=== PATIENT | male | born 1960 | race Caucasian/White ===

== ENCOUNTER 2019-08-22 13:35 | Outpatient (CLI) | payer BC, SELFPAY ==
--- NOTE | ~2019-08-22 | PE_ITS ---
EXAMINATION: PET skull to mid thigh DATE: 08/22/2019 15:34 INDICATION: Non-small cell lung cancer. TECHNIQUE: Blood glucose level was 220 mg/dL. 10.379 mCi of 18-fluorodeoxyglucose (18-FDG) was admini stered i.v. Low dose computed tomography (CT) images were acquired from the base of the brain to the proximal thighs for attenuation correction and anatomic localization. Automated exposure control was employed. Dose-length product (DLP) was 962 mGy-cm. Positron emission tomography (PET) images were ac quired in the same distribution. COMPARISON: None FINDINGS: Head/neck: There is increased activity in the oropharynx without CT correlate, likely physiologic. Th ere is an 11 mm nodule in right thyroid lobe without increased activity, likely not clinically signif icant. There are no pathologically enlarged lymph nodes. Chest: There is mild emphysema. There is a 2.2 cm nodule in left upper lobe with maximum SUV of 4.6. There is a 7 mm nodule in right upper lobe without increased activity. No pleural effusion. Cardiomeg shree is noted. There are coronary artery calcifications. No pericardial effusion. There is a left inte rnal jugular port with tip at superior cavoatrial junction. There are no pathologically enlarged lymp h nodes. There are a few scattered benign bone islands in the spine. Abdomen/pelvis/proximal thighs: The liver and spleen are normal. There are changes of cholecystectomy . The pancreas, adrenal glands, and kidneys are normal. There are no dilated loops of bowel. There is a ventral hernia containing a wall of nonobstructed small bowel. There is a left inguinal hernia con taining fat. There are no pathologically enlarged lymph nodes. There is no free intraperitoneal fluid . There is a left-sided spigelian hernia containing fat. There is a lytic lesion in posterior left ac etabulum with increased activity. There is a lytic lesion in L4 vertebral body with increased activit y. IMPRESSION: 1. 2.2 cm nodule in left lung upper lobe with increased activity, consistent with primary bronchogeni c carcinoma. 2. Lytic lesions in the left posterior acetabulum and L4 vertebral body with increased activity, cons istent with metastatic disease. 3. 7 mm right upper lobe pulmonary nodule without increased activity, which is indeterminate for meta static disease. 4. Ventral hernia containing a wall of nonobstructed small bowel. Reviewed, dictated and finalized at location A. M SASH MAKER IMPRESSION: 1. 2.2 cm nodule in left lung upper lobe with increased activity, consistent wi th primary bronchogenic carcinoma. 2. Lytic lesions in the left posterior acetabulum and L4 vertebral body with in creased activity, consistent with metastatic disease. 3. 7 mm right upper lobe pulmonary nodule without increased activity, which is indeterminate for metastatic disease. 4. Ventral hernia containing a wall of nonobstructed small bowel.
[2019-08-22 14:03] LABS: Glucose Point of Care 220 (65-105)
== END 2019-08-22 13:36 | disposition home or self-care (01) ==
PROVIDERS: Visit Provider Internal Medicine Hematology & Oncology
DX: C34.90 Malignant neoplasm of unspecified part of unspecified bronchus or lung (principal); M89.9 Disorder of bone, unspecified; R91.1 Solitary pulmonary nodule; K43.9 Ventral hernia without obstruction or gangrene
CPT/HCPCS: 78815; A9552

== ENCOUNTER 2019-09-06 09:22 | Outpatient (CLI) | payer BC, SELFPAY ==
[2019-08-25 11:45] VITALS: BMI 26.9
[2019-09-06] VITALS (10 sets, daily range): BP systolic 112–147; BP diastolic 58–85; PULSE 85–103; RESP 13–18; TEMP 36.6; O2SAT 91–99
--- NOTE | ~2019-09-06 | XR_ITS ---
EXAMINATION: XR chest 1V portable DATE: 09/06/2019 13:53 INDICATION: Left lung upper lobe nodule status post percutaneous biopsy. TECHNIQUE: A single frontal view of the chest was obtained. COMPARISON: Chest radiograph at 12:52 PM FINDINGS: There are airspace opacities in left lung upper lobe. There is a small left pneumothorax. N o pleural effusion. The heart size is normal. There is a left internal jugular port with tip at super ior cavoatrial junction. IMPRESSION: 1. Improved airspace opacities in left lung upper lobe, consistent with hemorrhage. 2. Stable small left pneumothorax. Reviewed, dictated and finalized at location A. IMPRESSION: 1. Improved airspace opacities in left lung upper lobe, consistent with hemorrh age. 2. Stable small left pneumothorax.
--- NOTE | ~2019-09-06 | XR_ITS ---
XR chest 1V portable 09/06/2019 15:51 Indication: Post biopsy. Non-small cell lung cancer. Procedure: AP portable chest Comparison: Comparison to multiple prior studies sequentially, with oldest reviewed study dated 08/26. Findings: Enlarging left apical pneumothorax measuring 3 cm from the visceral to the parietal pleura at the left apex. There is patchy left sided airspace consolidation. Heart size normal. Right lung cl ear. No pleural effusion. No acute osseous abnormality. Impression: 1: Enlargement of left apical pneumothorax compared with prior studies. 2: Persistent patchy left-sided airspace disease, consistent with postbiopsy hemorrhage. Reviewed, dictated and finalized at location A. Impression: 1: Enlargement of left apical pneumothorax compared with prior studies. 2: Persistent patchy left-sided airspace disease, consistent with postbiopsy he morrhage.
--- NOTE | ~2019-09-06 | XR_ITS ---
EXAMINATION: XR chest 1V DATE: 09/06/2019 12:58 INDICATION: Left upper lobe pulmonary nodule status post percutaneous biopsy. TECHNIQUE: A single frontal view of the chest was obtained. COMPARISON: PET/CT 08/22/2019, chest CT 09/06/2019 FINDINGS: There are airspace opacities in left upper lobe. No pleural effusion. There is a small left pneumothorax. Cardiomegaly is noted. There is a left internal jugular port with tip at superior cavo atrial junction. IMPRESSION: 1. Airspace opacities in left upper lobe, consistent with iatrogenic hemorrhage. The patient was plac ed in the supine oblique position with the right side elevated. 2. Small iatrogenic left pneumothorax. 3. Cardiomegaly. Reviewed, dictated and finalized at location A. IMPRESSION: 1. Airspace opacities in left upper lobe, consistent with iatrogenic hemorrhage . The patient was placed in the supine oblique position with the right side kostas vated. 2. Small iatrogenic left pneumothorax. 3. Cardiomegaly.
--- NOTE | ~2019-09-06 | CT_ITS ---
EXAMINATION: CT biopsy lung DATE: 09/06/2019 13:05 INDICATION: Left lung upper lobe nodule. TECHNIQUE: The procedure including the risks, benefits, and alternatives and possibility of chest tub e placement were discussed with the patient. Risks discussed included infection, approximately 1/20 r isk of symptomatic hemorrhage beyond mild hemoptysis, approximately 1/3 risk of pneumothorax, approxi mately 1/10 risk of pneumothorax severe enough to warrant chest tube placement, and rarely . The patient understood the risks and agreed to proceed. The patient was placed prone. The skin overlyin g the left chest was prepped and draped in sterile fashion. Anesthetic was administered with 1% lido keegan subcutaneously. A 19 gauge outer needle was advanced under CT guidance to the lesion of intere st. A 20 gauge core biopsy needle was then used to obtain 3 core biopsy specimens. The needle was rem zuly and the entry site was cleaned and dressed. The mA was adjusted according to patient size. Itera tive reconstruction technique was employed. The dose-length product was 433.26 mGy-cm. FINDINGS: CT images demonstrate the outer needle tip adjacent to a 2.1 cm nodule in left lung upper l obe. Subsequent images demonstrate a small left pneumothorax and a small volume of left upper lobe he morrhage. IMPRESSION: 1. CT-guided core needle biopsy of a 2.1 cm nodule in left lung upper lobe. 2. Small left pneumothorax. 3. Small volume of left upper lobe hemorrhage. The patient was placed in the supine oblique position with the right side up. Reviewed, dictated and finalized at location A. IMPRESSION: 1. CT-guided core needle biopsy of a 2.1 cm nodule in left lung upper lobe. 2. Small left pneumothorax. 3. Small volume of left upper lobe hemorrhage. The patient was placed in the [place] oblique position with the right side up.
[2019-09-06 10:39] LABS: Platelet Count Result 225 k/mm3 (150-375)
[2019-09-06 10:49] LABS: INR 0.8; Prothrombin Time 11.2 Seconds (11.1-14.7)
--- NOTE | 2019-09-06 13:49 | SUR.PHASEII ---
1347 PORTABLE CHEST XRAY TAKEN.
--- NOTE | 2019-09-06 15:46 | SUR.PHASEII ---
1545 PORTABLE CHEST XRAY TAKEN.
--- NOTE | 2019-09-06 16:43 | SUR.PHASEII ---
1600 DR ORTEZ SPEAKING WITH PT & SPOUSE. DR PICKENS TO DISCHARGE PT HOME. 1610 DISCHARGE INSTRUCTIONS GIVEN TO PT & SPOUSE- ALL QUESTIONS ANSWERED.
[2019-09-12 07:52] LABS: Glucose Point of Care 204 (65-105)
== END 2019-09-06 09:23 | disposition home or self-care (01) ==
PROVIDERS: Radiology Diagnostic Radiology; Visit Provider Internal Medicine Hematology & Oncology
DX: C34.90 Malignant neoplasm of unspecified part of unspecified bronchus or lung (principal); R91.8 Other nonspecific abnormal finding of lung field; J93.9 Pneumothorax, unspecified; I51.7 Cardiomegaly
CPT/HCPCS: 32405; 36415; 71045; 77012; 85049; 85610; 88305

== ENCOUNTER 2019-09-08 12:35 | Outpatient (CLI) | payer BC, SELFPAY ==
--- NOTE | ~2019-09-08 | MR_ITS ---
EXAMINATION: MR hip LT wo/w con DATE: 09/08/2019 14:26 INDICATION: Secondary malignant neoplasm of bone. TECHNIQUE: Magnetic resonance imaging (MRI) of the left hip was performed without and with 15 mL Mult iHance intravenous contrast. Sequences included coronal T1-weighted FSE and T2-weighted FS FSE, axial T2 1-weighted FSE and, T1-weighted FS FSE, and T2-weighted FS FSE, sagittal T1-weighted FSE and T2-w eighted FS FSE, and postcontrast coronal and axial T1-weighted FS FSE. COMPARISON: PET CT 08/22/2019 FINDINGS: Bone alignment is normal. No fracture. There are areas of bone marrow replacement involving L4 vertebral body and left ischium correlating with foci of increased activity on the prior PET/CT, consistent with metastatic disease. There are subcentimeter lesions of bone marrow replacement involv ing the right inferior pubic ramus, left ilium, and left parasymphyseal pubis suspicious for metastat ic disease. There is a left inguinal hernia containing fat. There are no pathologically enlarged lymp h nodes. There is no free intraperitoneal fluid. IMPRESSION: 1. Bone lesions, consistent with metastatic disease. Given the recent negative lung biopsy, consider CT-guided biopsy of the left ischium for diagnosis. Reviewed, dictated and finalized at location A.
[2019-09-08 13:16] LABS: Estimated Glomerular Filt Rate > 60
== END 2019-09-08 12:36 | disposition home or self-care (01) ==
PROVIDERS: Visit Provider Radiology Radiation Oncology
DX: C79.51 Secondary malignant neoplasm of bone (principal)
CPT/HCPCS: 36415; 73723; A9577

== ENCOUNTER 2020-01-30 13:38 | Outpatient (CLI) | payer BC, SELFPAY ==
[2020-01-30 14:05] LABS: Basophils Absolute Auto 0.1 K/mm3 (0.0-0.1); Basophils Percent Auto 1.9 % (0.2-1.2); Eosinophils Absolute Auto 0.6 K/mm3 (0-0.3); Eosinophils Percent Auto 11.3 % (0-4.4); Hematocrit 29.8 % (42.0-52.0); Hemoglobin 9.8 g/dL (14.0-18.0); Immature Granulocyte Absolute 0.05 K/mm3 (0.00-0.031); Immature Granulocyte Percent A 0.9 % (0-0.5); Lymphocytes Absolute Auto 1.02 K/mm3 (0.9-3.2); Lymphocytes Percent Auto 18.9 % (18.3-44.2); Mean Corpuscular HGB Conc 32.9 g/dl (32-36); Mean Corpuscular Hemoglobin 31.9 pg (26-34); Mean Corpuscular Volume 97.1 fl (80-100); Mean Platelet Volume 10.1 fl (7.4-10.4); Monocytes Absolute Auto 0.7 K/mm3 (0.1-0.6); Monocytes Percent Auto 12.2 % (2.6-8.5); Neutrophils Percent Auto 54.8 % (45.5-73.1); Platelet Count Result 224 k/mm3 (150-375); Red Blood Count 3.07 M/mm3 (4.6-6.20); Red Cell Distribution Width 15.5 % (11.5-14.5); White Blood Count 5.4 K/mm3 (4.5-10.0)
[2020-01-30 15:09] LABS: Alanine Aminotransferase 16 U/L (4-50); Albumin Level 4.3 g/dL (3.5-5.1); Alkaline Phosphatase 97 U/L (38-126); Aspartate Amino Transferase 25 U/L (17-59); Bilirubin,Total 0.4 mg/dL (0.2-1.3); Blood Urea Nitrogen 16 mg/dL (9-20); Calcium 8.5 mg/dL (8.4-10.2); Carbon Dioxide 24 mmol/L (22-30); Chloride 103 mmol/L (98-107); Estimated Glomerular Filt Rate > 60; Glucose 141 mg/dL (75-110); Sodium 138 mmol/L (137-145)
[2020-01-30 15:28] LABS: Microalbumin Urine Random 122.2 mg/L (0-16.7)
[2020-01-30 17:02] LABS: Creatinine Urine 362.7 mg/dL; MALB Creatinine Ratio 33.7 mg/g (0-30)
== END 2020-01-30 13:39 | disposition home or self-care (01) ==
PROVIDERS: Visit Provider Internal Medicine Hematology & Oncology
DX: Z00.01 Encounter for general adult medical examination with abnormal findings (principal); C34.91 Malignant neoplasm of unspecified part of right bronchus or lung; E11.9 Type 2 diabetes mellitus without complications; R03.0 Elevated blood-pressure reading, without diagnosis of hypertension
CPT/HCPCS: 36415; 80053; 82043; 83036; 85025

== ENCOUNTER 2020-02-02 10:28 | Outpatient (CLI) | payer BC, SELFPAY ==
--- NOTE | ~2020-02-02 | NM_ITS ---
EXAMINATION: NM bone scan whole body DATE: 02/02/2020 14:27 INDICATION: Non-small cell lung cancer. TECHNIQUE: 21 mCi Tc-99m HDP was administered intravenously. Delayed whole-body scintigrams were obt ained. COMPARISON: Head CT dated 08/22/2019 and left hip MRI dated 09/08/2019. No more recent study available for comparison. FINDINGS: There is mild increased uptake at the posterior left acetabulum and at the left side of the L4 verteb ral body which correspond to previously identified FDG avid likely metastatic lesions. Mild likely de generative joint centered uptake at several of the costovertebral articulations. Small focus of relat ively intense uptake in the left zygomatic region without evident correlate on the prior study. Addit ional small focus of moderately increased uptake at the right side of the mandible which could be rel ated to dental disease. Subtle focus of mild increased uptake at the superolateral left calvarium. No other suspicious bone lesions identified. IMPRESSION: 1. Mild increased uptake associated with known FDG avid likely metastatic lesions at the posterior le ft acetabulum and at the left side of the L4 vertebral body. 2. 3 foci of increased uptake in the head, the most suspicious is a small focus of relatively intense uptake projecting over the left zygomatic region potentially associated with the temporomandibular j oint although the temporomandibular joint appears normal on the prior PET/CT. If clinically indicated could consider further evaluation with either maxillofacial CT or pre and postcontrast MRI. Reviewed, dictated and finalized at location A. IMPRESSION: 1. Mild increased uptake associated with known FDG avid likely metastatic lesio ns at the posterior left acetabulum and at the left side of the L4 vertebral [place] dy. 2. 3 foci of increased uptake in the head, the most suspicious is a small focus of relatively intense uptake projecting over the left zygomatic region potenti ally associated with the temporomandibular joint although the temporomandibular joint appears normal on the prior PET/CT. If clinically indicated could consid er further evaluation with either maxillofacial CT or pre and postcontrast MRI.
== END 2020-02-02 10:29 | disposition home or self-care (01) ==
PROVIDERS: Visit Provider Internal Medicine Hematology & Oncology
DX: C34.91 Malignant neoplasm of unspecified part of right bronchus or lung (principal)
CPT/HCPCS: 78306; A9561

== ENCOUNTER 2020-03-08 13:51 | Outpatient (CLI) | payer BC, SELFPAY ==
--- NOTE | ~2020-03-08 | CT_ITS ---
EXAMINATION: CT facial bones w con DATE: 03/08/2020 14:30 INDICATION: Secondary malignant neoplasm of bone; increased uptake suggested at left temporomandibula r slice zygomatic area on 02/02/2020 radionuclide bone scan TECHNIQUE: Computed tomography (CT) of the facial bones and maxillofacial region was performed with 7 5 cc Omnipaque 350 intravenous contrast. Automated exposure control and iterative reconstruction tech nique were employed. Exam dose: 290.42 mGy-cm total exam DLP. COMPARISON: 08/22/2019 PET scan 02/02/2020 radionuclide bone scan FINDINGS: Probable old bilateral nasal plate fractures. No facial fracture is evident. The frontozygomatic sutures, zygomatic arches and temporomandibular bryant ints are intact. No facial bone destruction. No mandible bone destruction. The temporal mandibular bryant ints are unremarkable. There is no evidence of bone destruction at the left temporal mandibular or zy gomatic area. No overlying parotid mass lesion is detected. No cervical mass lesion or lymphadenopath y. The submandibular and parotid glands are unremarkable. IMPRESSION: No significant abnormality of the facial bones, temporomandibular joints and mandible Reviewed, dictated and finalized at Location A. Reviewed, dictated and finalized at location A.
== END 2020-03-08 13:52 | disposition home or self-care (01) ==
PROVIDERS: Visit Provider Radiology Radiation Oncology
DX: C79.51 Secondary malignant neoplasm of bone (principal)
CPT/HCPCS: 70487; Q9967

== ENCOUNTER 2020-04-29 11:45 | Emergency (ER) | payer BC, SELFPAY ==
[2020-04-29 11:49] VITALS: BP 142/98; PULSE 62; RESP 18; TEMP 36; O2SAT 100
--- NOTE | 2020-04-29 11:56 | ECG_ITS ---
Measurements Intervals [place] Rate: 116 P: 66 KS: 122 QRS: 65 QRSD: 98 T: 61 QT: 297 QTc: 414 Interpretive Statements SINUS TACHYCARDIA FREQUENT ATRIAL PREMATURE COMPLEXES INCOMPLETE RIGHT BUNDLE BRANCH BLOCK BASELINE ARTIFACT- I, III, AVR, AVL ABNORMAL ECG Electronically Signed On 04-29-2020 12:07:19 [employer] by Porfirio Sauer D.O.
[2020-04-29] MEDS: SODIUM CHLORIDE 0.9% IV 1,000 ML 999 ML IV CONT (12:52)
[2020-04-29] MEDS: ONDANSETRON INJ 4 MG/2 ML VIAL IV PUSH (12:52)
[2020-04-29] MEDS: DEXAMETHASONE SOD PHOS INJ 4 MG/ML VIAL IV PUSH (12:59)
--- NOTE | 2020-04-29 13:02 | ED.GENADULT ---
HPI - General Adult General Chief complaint: Arrhythmia/Palpitations Stated complaint: sent from infusion center, not feeling well Time Seen by Provider: 04/29/20 12:10 Source: patient History of Present Illness HPI narrative: Patient is 59 y/o male complaining of nausea and vomiting since last week. He vomited more than 10 time over last 24 hours. He vomits mostly food and liquid. There is no known alleviating or exacerbating factor. He states that he is on Keytruda for lung cancer and he received radiation treatment 2 weeks ago. He was at infusion center to get some IV fluid, steroids and antiemetics today. However, he was told that his heart rate fast and erratic and he was sent here. He does not feel any subjective palpitation. Related Data Home Medications Medication Instructions Recorded Confirmed azelaic acid 1 applic TOPICAL BID 08/25/19 04/22/20 gabapentin 300 mg PO TID 08/25/19 04/22/20 insulin glargine [Lantus U-100 60 unit SUBCUT DAILY 08/25/19 04/22/20 Insulin] lisinopril 5 mg PO DAILY 08/25/19 04/22/20 metformin 1,000 mg PO BID 08/25/19 04/22/20 multivitamin 1 tablet PO DAILY 08/25/19 04/22/20 omeprazole 40 mg PO DAILY 08/25/19 04/22/20 cholestyramine-aspartame 4 g PO DAILY 11/02/19 04/22/20 [Cholestyramine Light] diphenoxylate-atropine 1 tablet PO TID PRN 11/02/19 04/22/20 cyanocobalamin (vitamin B-12) 1,000 mcg PO DAILY 03/11/20 04/22/20 ferrous sulfate 325 mg PO DAILY 03/11/20 04/22/20 tramadol 50 mg PO Q6H PRN 03/11/20 04/22/20 magnesium [Mag-200] 200 mg PO DAILY 04/22/20 04/22/20 Allergies Allergy/AdvReac Type Severity Reaction Status Date / Time amoxicillin Allergy Hives Verified 04/29/20 11:57 hydromorphone AdvReac Itching Verified 04/29/20 11:57 Review of Systems Constitutional: Constitutional: Denies chills, Denies fever(s), Denies headache(s) and Denies weakness Eyes: Eyes: Denies blurry vision ENT: Denies headache(s) and Denies neck pain Cardiovascular: Cardiovascular: Denies chest pain and Denies dyspnea Respiratory: Respiratory: Denies cough and Denies dyspnea Gastrointestinal: Gastrointestinal: Reports abdominal pain, Denies diarrhea, Reports nausea and Reports vomiting Genitourinary: Genitourinary: Denies hematuria and Denies dysuria Musculoskeletal: Musculoskeletal: Reports back pain, Denies neck pain and Reports other (bilateral leg pain) Neurologic: Denies headache(s) and Denies weakness [facility] Past Medical History Medical History COPD (chronic obstructive pulmonary disease) Diabetes mellitus GERD (gastroesophageal reflux disease) Hyperlipidemia Neuropathy Family History Family History Mother Cancer Social History Social History Smoking packs per day: 2 Smoking cigarettes per day: 40.0 Years smoked: 40 Smoking pack-years: 80.00 Smoking status: Former smoker Tobacco type: cigarettes Smoking end date: 08/30/14 Gender identity (if verbalized by the patient): Male Spiritual care concerns: No Exam Const: General: no acute distress and well developed Orientation/consciousness: oriented to person, oriented to place, oriented to time and patient oriented x3 HENMT: Head: normocephalic Ears: external ears normal General nose exam: Normal external nose present Eyes: General: appearance normal, both eyes and all related structures Conjunctivae: conjunctivae normal Neck: Neck: normal visual inspection and full ROM Chest: Chest palpation & inspection: normal inspection of the chest and no tenderness Resp: Effort & Inspection: normal respiratory effort Auscultation: clear to auscultation bilaterally Cardio: Rate: tachycardic Rhythm: regular rhythm GI: GI Palp: No abdominal tenderness and Yes Soft to palpation Skin: General skin exam: normal color and turgor normal Neuro: General: orien
[2020-04-29 13:03] LABS: Basophils Percent Auto 0.7 % (0.2-1.2); Eosinophils Absolute Auto 0.1 K/mm3 (0-0.3); Eosinophils Percent Auto 1.4 % (0-4.4); Hematocrit 33.7 % (42.0-52.0); Hemoglobin 11.8 g/dL (14.0-18.0); Immature Granulocyte Absolute 0.02 K/mm3 (0.00-0.031); Immature Granulocyte Percent A 0.5 % (0-0.5); Lymphocytes Absolute Auto 0.59 K/mm3 (0.9-3.2); Lymphocytes Percent Auto 13.3 % (18.3-44.2); Mean Corpuscular Hemoglobin 29.6 pg (26-34); Mean Corpuscular Volume 84.7 fl (80-100); Mean Platelet Volume 9.3 fl (7.4-10.4); Monocytes Absolute Auto 0.5 K/mm3 (0.1-0.6); Monocytes Percent Auto 11.7 % (2.6-8.5); Neutrophils Absolute Auto 3.2 K/mm3 (1.3-6.7); Neutrophils Percent Auto 72.4 % (45.5-73.1); Platelet Count Result 242 k/mm3 (150-375); Red Blood Count 3.98 M/mm3 (4.6-6.20); Red Cell Distribution Width 13.2 % (11.5-14.5); White Blood Count 4.4 K/mm3 (4.5-10.0)
[2020-04-29 13:16] LABS: Alanine Aminotransferase 17 U/L (4-50); Albumin Level 4.4 g/dL (3.5-5.1); Alkaline Phosphatase 99 U/L (38-126); Anion Gap 11 mmol/L (8-16); Aspartate Amino Transferase 22 U/L (17-59); Bilirubin,Total 0.7 mg/dL (0.2-1.3); Blood Urea Nitrogen 21 mg/dL (9-20); Calcium 9.8 mg/dL (8.4-10.2); Carbon Dioxide 27 mmol/L (22-30); Chloride 98 mmol/L (98-107); Estimated CRCL calculation 71 ml/min; Estimated Glomerular Filt Rate > 60; Glucose 208 mg/dL (75-110); Potassium 4.2 mmol/L (3.4-5.0); Sodium 136 mmol/L (137-145)
[2020-04-29] MEDS: METOCLOPRAMIDE HCL INJ 10 MG/2 ML VIAL (14:14)
[2020-04-29 15:04] LABS: Add Urine Microscopic? YES; Appearance Urine Clear (Clear); Bilirubin Urine Negative (Negative); Blood Urine 1+ (Negative); Color Urine Yellow (Yellow); Glucose Urine UA 1+ mg/dL (Negative); Ketones Urine Trace mg/dL (Negative); Leukocyte Esterase Ur Negative LEU/UL (Negative); Mucus Urine Few /lpf; Nitrate Urine Negative (Negative); Protein Urine 3+ mg/dL (Negative); RBC Urine 0-2 /hpf (0-2); Specific Grav Ur 1.027 (1.001-1.035); Urobilinogen Urine Negative mg/dL (<2.0); WBC Urine 0-3 /hpf
[2020-04-29 15:26] VITALS: BP 147/73; PULSE 97; RESP 18; O2SAT 100
[2020-04-29 16:14] VITALS: BP 138/80; PULSE 74; RESP 18; TEMP 36.7; O2SAT 99
[2020-04-29] MEDS: HEPARIN SOD FLUSH 500 UNITS/5 ML SYRINGE (16:14)
== END 2020-04-29 16:20 | disposition home or self-care (01) ==
PROVIDERS: Internal Medicine Hematology & Oncology; Emergency Provider Emergency Medicine; PCP Internal Medicine Infectious Disease
DX: R11.2 Nausea with vomiting, unspecified (principal); R00.0 Tachycardia, unspecified; C34.90 Malignant neoplasm of unspecified part of unspecified bronchus or lung; J44.9 Chronic obstructive pulmonary disease, unspecified; K21.9 Gastro-esophageal reflux disease without esophagitis; E78.5 Hyperlipidemia, unspecified; E11.40 Type 2 diabetes mellitus with diabetic neuropathy, unspecified; Z79.4 Long term (current) use of insulin; Z87.891 Personal history of nicotine dependence; I49.1 Atrial premature depolarization; I45.10 Unspecified right bundle-branch block
CPT/HCPCS: 36415; 80053; 81001; 85025; 93005; 96361; 96374; 96375; 99214; 99284; G0463; J1100; J2405; J2765; J7030